=== PATIENT | female | born 1940 | race Caucasian/White ===

== ENCOUNTER → 2022-01-15 10:17 | Outpatient (CLI) | payer OTHER, SELFPAY ==
[2022-01-15 12:00] LABS: COVID19 -Nasal RAPID Negative (Negative)
== END ==
PROVIDERS: PCP Nurse Practitioner; Visit Provider Family Medicine Sleep Medicine
DX: Z20.822 Contact with and (suspected) exposure to COVID-19 (principal)
CPT/HCPCS: 87635; C9803

== ENCOUNTER 2022-01-16 09:51 | Day surgery (SDC) | payer OTHER, SELFPAY ==
[2022-01-15 14:56] VITALS: BMI 41.7
[2022-01-16] VITALS (20 sets, daily range): BP systolic 109–161; BP diastolic 52–88; PULSE 60–104; RESP 10–20; TEMP 35.9–36.8; O2SAT 93–96; BMI 41.7
--- NOTE | 2022-01-16 07:12 | DI.RAD.S_ITS ---
PROCEDURE: XR KNEE LT 1TO2V INDICATIONS: TOTAL KNEE ARTHROPLASTY TECHNIQUE: 2 view(s) of the knee acquired. COMPARISON: None. FINDINGS: Bones: Patient is status post knee joint arthroplasty. Hardware components are in expected positions. Visualized bony structures are intact. Soft tissues: Overlying postoperative changes are noted. IMPRESSION: Postsurgical changes detailed above. Dictated by: Toni Bella M.D. on 01/16/2022 at 15:24 Approved by: Toni Bella M.D. on 01/16/2022 at 15:25
[2022-01-16] MEDS: CELECOXIB 200 MG CAPSULE PO (10:12)
[2022-01-16] MEDS: ACETAMINOPHEN 325 MG TABLET 975 MG PO (10:12)
[2022-01-16] MEDS: VANCOMYCIN 1,000 MG/200 ML PIGGYBACK 200 MG IV (10:12)
[2022-01-16] MEDS: LACTATED RINGERS 1,000 ML 42 ML IV ×2 (10:39→12:52)
--- NOTE | 2022-01-16 11:17 | PM.PREOP ---
Pre-operative Note COVID-19 COVID-19 status: Negative Interval Note History & Physical reviewed/Exam performed by Physician: Yes Changes to H&P: No
--- NOTE | 2022-01-16 11:18 | PM.OP.1 ---
Operative Date/Time/Diagnoses Date of procedure: 01/16/22 Time of procedure: 11:18 Pre-op diagnosis: left knee OA Post-op diagnosis: same Procedure & Clinicians Procedure: Left total knee arthroplasty Same procedure as scheduled: Yes Indications: The patient has had progressively worsening left knee pain with radiographic changes consistent with arthritis. Non-operative management has failed and the patient has requested total knee replacement. The risks, benefits and alternatives to surgery were discussed with the patient prior to proceeding. Risks discussed included, but were not limited to, failure to relieve pain, stiffness, infection, nerve damage, deep venous thrombosis, pulmonary embolism, stroke, coma, heart attack, permanent paralysis and , as well as the potential need for eventual revision of the prosthetic. Surgeon: Tammie Arnett [employer] Manager: Pebbles Tobar Anesthesia Type: General and Spinal Operative Notes Findings: Severe left knee osteoarthritis, adequate stability, good range of motion Closure Type: primary Specimen(s): none sent Prosthetic devices, grafts, tissues, transplants, or devices: [employer] BCs to size 4 femur, size 4 tibia, +9 poly, 35 x 7.5 mm patella Applied: drain(s) Estimated Blood Loss (mL): 250 Blood products transfused: none Tourniquet time (min): 95 Procedure in detail: The patient was seen in the pre-operative area, where the patient identified the left knee as the operative site and this was marked with my initials. The patient received pre-operative antibiotics, and was taken to the operating room and placed on the operative table in the supine position. After satisfactory anesthesia, a radio time buyer out was performed. The left leg was encircled with a tourniquet about the proximal thigh, and the leg was prepared from the toes to the tourniquet with ChloroPrep in the usual fashion and draped through sterile drapes. The leg was elevated and exsanguinated with Eschmark bandage and the tourniquet inflated to [250] mmHg pressure. The knee was approached through an approximately 18 cm incision centered over the patella and carried into the knee through a medial parapatellar arthrotomy. A portion of the medial and lateral meniscus was resected. Soft tissue was carefully mobilized around the patella the patella was measured with a caliper. Bone was resected from the patella and the patellar height was reconstituted with up an appropriate sized patellar component. A cover was then placed on the patella. A small amount of additional medial and lateral meniscus was resected. She had a tight knee and severe osteoarthritis with a markedly abnormal patella. Resected multiple osteophytes around the patella and meticulously mobilized the the patellar tendon and quad to allow adequate access to the knee. She did have some patella baja. The distal femur was cut at 5?. A [+2] cut was used. It looked like an appropriate distal femoral cut and the cut was made without difficulty. An extramedullary guide was used for the tibial cut. 10 mm was resected off the least affected side.The tibia was prepared. The rotation was assessed. The patient was placed in extension residual medial and lateral meniscus as well as any residual bone was carefully resected. [No] additional tibia was resected. Hemostasis was achieved especially posteriorly. Additional local was injected into the posterior capsule. The extension gap was assessed and additional releases for gap balancing were performed as necessary. It was checked with the gap waste management engineer. The femoral component trial was placed and the notch was finished. The rotation was assessed and the appropriate size femoral guide was placed on the distal femur and finishing cuts were made. There was no evidence of notching. The anterior, posterior and chamfer cuts were then made. The posterior osteophytes and soft tissues were then removed. The posterior capsule was injected with part of a mixture of 60 ml 0.25% Marcaine mixed with 20 ml Exparel for post operative pain control. The remainder of this mixture was injected into the capsule and subcutaneous tissues during cement curing. The tibial and femoral components were then placed and the knee placed through a range of motion. Range of motion was [0-130], with good stability throughout the range. The trials were then removed, and the tibia was finished. The bone was prepared with pulsatile lavage, and dried with a sponge. Cement was applied and the final prosthetics placed. Excess cement was removed during and after cement curing. A brief Betadine soak was performed. After confirming there was no extruded cement posteriorly, the final tibial insert was placed. The knee was copiously irrigated and the tourniquet deflated. Hemostasis was obtained with the Bovie cautery. A drain was placed and brought out superolaterally. The capsule was closed with interrupted nonabsorbable suture. The subcutaneous layer was closed with barbed sutures, and the skin with a running 3-0 V-Lock suture and skin melissa. An anjel dressing was applied and the patient was taken to recovery having tolerated the procedure well. Complications: none Post-operative Condition: stable Disposition: Acute Care Plan for aftercare: The patient will be maintained on a standard total knee replacement protocol with weight bearing as tolerated. The patient will receive aspirin and sequential compression devices for DVT prophylaxis. The patient will be discharged home when safe for the home environment.
[2022-01-16] MEDS: CEFAZOLIN 2 GM/20 ML SYRINGE IV ×2 (11:35→19:00)
[2022-01-16] MEDS: TRANEXAMIC ACID 1,000 MG VIAL 2000 MG INJ ×2 (11:40→13:30)
--- NOTE | 2022-01-16 12:07 | SUR.OPER ---
Supine on padded OR bed. Pillow under head, arms secured on padded armboards <90 degree abduction. Safety belt across torso. Non-operative leg secured with tape over blanket over lower leg. Operative leg secured in DeMayo positioner and in control of the surgeon. Foam padded brace at thigh of operative leg.
[2022-01-16] MEDS: BUPIVACAINE LIPOSOME 266 MG/20 ML VIAL INJ (12:34)
[2022-01-16] MEDS: BUPIVACAINE 0.25% (PF) 60 ML, EPINEPHrine 0.3 MG INJ (12:59)
[2022-01-16] MEDS: SODIUM CHLORIDE IRRIG SOLUTION 250 ML, POVIDONE-IODINE SPONGE STICKS 1 APPLIC IRR (13:06)
--- NOTE | 2022-01-16 15:38 | SUR.PHASEI ---
Late entry: (1501)EKG completed by Respiratory therapy at 1501; viewed by Dr Bethea, anesthesiologist; no new changes. Cardiac panel labs ordered and sent to lab for analysis.
--- NOTE | 2022-01-16 15:39 | SUR.PHASEI ---
Patient still c/o chest heaviness but vss; no SOB; resting with eyes closed. VSS. Drinking water when prompted. Awaiting Cardiac Panel results.
[2022-01-16 15:40] LABS: Creatine Kinase 64 U/L (30-135)
[2022-01-16 15:52] LABS: Troponin I < 0.012 ng/mL (0.01-0.034)
--- NOTE | 2022-01-16 16:07 | SUR.PHASEI ---
Cardiac lab resultsback, called in to the OR to Dr. Bethea. He OK'd the patient transfer to acute care. Patient is sitting up, drinking water, talking, denies pain/nausea. Has had not chest pain, nausea, diaphoresis or other cardiac symptoms throughout pacu stay. Only complaint has continued to be the chest 'heaviness'. She currently states that it is 'mild' and 'a lot better.' Report called to acute care nurse. VSS. Pedal pulses continue to be present with doppler.
[2022-01-16] MEDS: LACTATED RINGERS 1,000 ML 100 ML IV (18:00)
--- NOTE | 2022-01-16 19:48 | PC.NURSE ---
Pt arrived from PACU this afternoon slightly groggy, A &Ox3 on 2 LNC. She reports returning sensation to b lower extremities, denies pain to L knee. She has anjel, aquacel, cj wrap and hemovac with minimal out put. She tolerates dinner well w/o n/v. She is encouraged to cough and deep breathe initially sleeping and will encourage IS use. UPon shift change she was requesting to use the bed amato. LR at 100 ml/hr. She denies any further chest discomfort this afternoon/marlin.
[2022-01-16] MEDS: DOCUSATE 100 MG CAPSULE PO (20:27)
[2022-01-16] MEDS: ASPIRIN EC 81 MG TABLET PO (20:27)
[2022-01-16] MEDS: ACETAMINOPHEN 325 MG TABLET 650 MG PO (20:27)
--- NOTE | 2022-01-16 21:55 | PC.NURSE ---
Patient is alert and oriented. Breath sounds CTA with sat of 93% on oxygen at 4L/min. Tried on RA but drops to 88% when asleep so back on oxygen now at 2L/min per NC. HRR. Denies nausea. BT hypoactive and patient denies passing flatus as yet. Is able to turn herself in bed. Up to BSC with walker and 1 assist. Denies pain. Hemovac pulled apart and unable to reconnect so discontinued. ISAC dressing to left knee is intact and functioning; cj wrap to left knee. Wearing bilateral calf SCD's. Chronic neuropathy bilateral feet unchanged and no new numbness/tingling. Able to move left leg well but still with some weakness. Fall risk score is high and bed alarm is activated.
[2022-01-17] MEDS: IBUPROFEN 400 MG TABLET PO ×3 (00:50→09:21)
[2022-01-17 01:14] VITALS: BP 122/60; PULSE 70; RESP 19; TEMP 36.4; O2SAT 94
[2022-01-17] MEDS: CEFAZOLIN 2 GM/20 ML SYRINGE IV (04:14)
[2022-01-17 04:56] LABS: Hematocrit 36.7 % (36-46); Hemoglobin 12.3 g/dL (12.0-16.0)
[2022-01-17 05:10] VITALS: BP 102/54; PULSE 74; RESP 18; TEMP 36.4; O2SAT 93
[2022-01-17] MEDS: LACTATED RINGERS 1,000 ML 100 ML IV (05:41)
[2022-01-17 08:00] VITALS: BP 115/52; PULSE 70; RESP 18; TEMP 35.9; O2SAT 94
--- NOTE | 2022-01-17 08:39 | P.DS_ITS ---
History of Present Illness History of Present Illness Date Patient Seen: 01/17/22 Time Patient Seen: 08:40 Chief complaint: LT TKA 5/3 *OPB* Narrative: Operative Date/Time/Diagnoses Date of procedure: 01/16/22 Time of procedure: 11:18 Pre-op diagnosis: left knee OA Post-op diagnosis: same Procedure & Clinicians Procedure: Left total knee arthroplasty Same procedure as scheduled: Yes Indications: The patient has had progressively worsening left knee pain with radiographic changes consistent with arthritis. Non-operative management has failed and the patient has requested total knee replacement. The risks, benefits and a lternatives to surgery were discussed with the patient prior to proceeding. Risks discussed included, but were not limited to, failure to relieve pain, stiffness, infection, nerve damage, deep venous thrombosis, pulmonary embolism, stroke, coma, heart attack, permanent paralysis and , as well as the potential need for eventual revision of the prosthetic. Surgeon: Tammie Arnett Electronics Supervisor: Pebbles Tobar Anesthesia Type: General and Spinal Operative Notes Findings: Severe left knee osteoarthritis, adequate stability, good range of motion Closure Type: primary Specimen(s): none sent Prosthetic devices, grafts, tissues, transplants, or devices: [employer] BCs to size 4 femur, size 4 tibia, +9 poly, 35 x 7.5 mm patella Applied: drain(s) Estimated Blood Loss (mL): 250 Blood products transfused: none Tourniquet time (min): 95 Discharge Providers Provider Discharge Date: 01/17/22 Primary care physician: HELENA Oliva Consults: 01/16/22 07:12 Consult to Anesthesiology Routine Comment: Consulting Provider: Anesthesiologist Reason for consultation: Regional block for post operative pain control 01/16/22 17:09 Consult to Discharge Planning Routine Comment: Consult to Physical Therapy Evaluate & Treat Comment: Physician Instructions: postop TKA protocol Consult to Respiratory Therapy Evaluate & Treat Comment: Physician Instructions: Evaluate and treat Discharge provider: Pebbles Tobar PA-C Summary Hospital Course Discharge Diagnosis: 1) s/p LEFT total knee arthroplasty 2) Morbid obesity Hospital Course: Ms Gloria's hospital course was remarkable for the need for supplemental oxygen to keep her O2 saturation above 90%. She was on 4 liters by NC after surgery, tapered down to 2 liters on POD# 1, and was saturating 90% or greater on room air by the time of discharge. She was eating and voiding without difficulty. She was evaluated by PT. Her pain was well-controlled on oral medication. Exam Vital Signs (past 8 hours): - 01/17/22 01:14 01/17/22 05:10 Temperature 97.5 F L 97.6 F Pulse Rate 70 74 Respiratory Rate 19 18 Blood Pressure 122/60 102/54 L Pulse Oximetry 94 93 Oxygen Delivery Method Nasal Cannula Oxygen Flow Rate 2 Narrative Exam Narrative: 5/5 strength in hip flexors, quadriceps, hamstrings, DF, PF, EHL bilaterally. Sensation to light touch intact throughout BLE. Calves soft, compressible, nontender and without palpable cords or masses. ISAC dressing operating, CDI. Objective Labs Result Diagrams: 01/17/22 04:37 Labs: Laboratory Results - last 24 hr 01/16/22 01/17/22 15:20 04:37 Hgb 12.3 Hct 36.7 Total Creatine Kinase 64 CK-MB (CK-2) TNP CK-MB (CK-2) Rel Index TNP Troponin I < 0.012 [facility] Medical History (Updated 01/16/22 @ 16:41 by Monse Crespo RN) COVID-19 virus infection (~08/2021) History of dislocation of shoulder Surgical History (Updated 01/16/22 @ 16:41 by Monse Crespo RN) History of arthroplasty of right knee (2011) History of bilateral breast reduction surgery Social History household members: family Smoking Status: Never smoker alcohol intake: never Discharge Assessment & Plan Assessment and Plan Assessment: 1) s/p LEFT total knee arthroplasty 2) Morbid obesity Plan of Treatment: Discharge home, multimodal pain control (pt denies need for prescriptions), outpt PT, ASA 81 mg BID for VTE prophylaxis. Discharge Plan Discharge Plan Patient Disposition: Home Provider Discharge Comment: Pt states no need for discharge medications. Discharge orders & Medications Discharge Orders: Discharge (Order); Ordered 01/17/22 Ordered By: Pebbles Tobar Prescriptions: New acetaminophen 325 mg Tablet 650 mg PO TID Qty: 1 0RF aspirin 81 mg Tablet,Delayed Release (Dr/Ec) 81 mg PO BID Qty: 1 0RF ibuprofen 400 mg Tablet 400 mg PO Q4HR Qty: 1 0RF oxycodone 5 mg Tablet 5 mg PO Q4H PRN (Reason: pain, severe) Qty: 1 0RF Follow up/Referrals: Lisandra Seo ARNP [Primary Care Provider] - Tammie Arnett MD [Physician] - As previously scheduled (Follow up with Dr Arnett on 01/26/2022 @ 2:00 pm at [facility] office in [place]) Diet/Activity/Treatments Diet: Diet as Tolerated Activity: Walk frequently! Cold/Heat Therapy: Ice to knee as needed for pain. Skin/Wound/Dressing Care Report to your healthcare provider any signs of infection, such as:: chills, fever, night sweats, unusual drainage and unusual redness Dressing: May remove ANUP wrap and smaller dressing over drain exit site and shower on January 19. Leave ISAC dressing (long white dressing) in place until follow up visit in office. When the battery expires, you may disconnect the battery pack and throw it away. No bathing or otherwise soaking incision. Call the office if dressing becomes saturated inside. Visit Report/Discharge Packet Instructions: DI for Knee Replacement Stand Alone Forms: Surgery Discharge Discharge Data Primary Care Provider: Lisandra Seo Attending Provider: Tammie Arnett
[2022-01-17] MEDS: DOCUSATE 100 MG CAPSULE PO (09:20)
[2022-01-17] MEDS: ACETAMINOPHEN 325 MG TABLET 650 MG PO (09:20)
[2022-01-17] MEDS: ASPIRIN EC 81 MG TABLET PO (09:21)
[2022-01-17] MEDS: SODIUM CHLORIDE 0.9% FLUSH 10 ML IV (09:21)
[2022-01-17 09:34] VITALS: O2SAT 92
--- NOTE | 2022-01-17 10:20 | PT.IIE ---
Current Diagnoses Unilateral primary osteoarthritis, left knee (01/16/22) Surgery Performed Operation Date: 01/16/22 11:30 Actual Procedures p Total Knee Arthroplasty(Left) - Tammie Arnett MD Medical History (Last Updated 01/16/22 @ 16:41 by Monse Crespo RN) COVID-19 virus infection (~08/2021) History of dislocation of shoulder Physical Therapy Inpatient Evaluation/Re-Eval M1 PT/OT-IP Prior Functional Status Start: 01/17/22 12:38 Freq: NEEDED Status: Discharge Protocol: Document 01/17/22 10:20 AB (Rec: 01/17/22 12:51 AB [id number]) Medical Review Prior Functional Status Medical History Reviewed Yes Communication able to make needs known Mobility and Gait pt stated that she is modified independent with all mobilities and ambulation without AD indoors but tends to furniture cruise; uses 4WW for outdoor mobility Social History Household Members children Living Arrangements Apartment/Condo Number of Floors (Floors) One Floor Number of Stairs To Enter/Railing? 1 steps to enter Home Environment High Toilet,Walk in Shower Home Equipment Front Wheel Walker,Four Wheel Walker,Shower Seat with Backrest,Hand Held Shower,Grab Bars In Shower Additional Social History Comment will have her daughter assist her at home M2 PT-IP Current Condition Start: 01/17/22 12:38 Freq: NEEDED Status: Discharge Protocol: Document 01/17/22 10:20 AB (Rec: 01/17/22 12:51 AB [email or web address]) Physical Therapy Current Condition Current Condition Evaluation Date 01/17/22 Treatment Diagnosis s/p L TKA; difficulty in walking Onset Date 01/16/22 M3 PT-IP Subjective Start: 01/17/22 12:38 Freq: NEEDED Status: Discharge Protocol: Document 01/17/22 10:20 AB (Rec: 01/17/22 12:51 AB [id number]) Subjective Physical Therapy Visit Type Type Initial Evaluation Visit Start Time 10:20 Visit Stop Time 11:15 Total Visit Minutes 55 Number of CABLE BRAIDER Visits 0 Physical Therapy Visit Comments Patient Comments agreeable to do PT Therapy Pain Assessment Pain When Pain Assessed During Mobility Pain Present Pain Present Pain Reported Location Left Knee Intensity 6 Scale Used Numeric (0 - 10) Pain Management Techniques Apply Cold,Distraction, Elevation,Modification of Treatment,Re-positioning, Timing of Activity with Medications M4 PT-IP Mobility and Gait Start: 01/17/22 12:38 Freq: NEEDED Status: Discharge Protocol: Document 01/17/22 10:20 AB (Rec: 01/17/22 12:51 AB [id number]) PT-Bed Mobility Assessment Supine to Sit Supine to Sit Standby Assistance PT-Transfer Assessment Sit to and From Stand Sit to and from Stand Contact Guard Assistance,1 Person Assistance,Use of Upper Extremities Equipment Transfer Assistive Device Gait Belt,Front Wheeled Walker Orthotic/Prosthetic Devices or Brace: No Transfers Transfer Destination Chair,Toilet Transfer Technique ambulated Transfer Ability Level of Assist Standby Assistance,Contact Guard Assistance,1 Person Assistance,Use of Upper Extremities Comments Mobility Comments daughter in room with pt. BP in supine: 113/58. completed supine to sit SBA. able to sit on EOB without c/o dizziness/ lightheadedness. (+) SOB. O2 sat checked: 93%. BP checked in sittin/78. pt completed sit to stand CGA and ambulated to the chair using FWW CGA. pt sat the chair. caregiver training conducted. educated daughter regarding use of safety belt and how to assist pt. daughter was able to put safety belt on pt. assisted pt with sit to stand and ambulated pt using FWW towards the set ~ 30 ft. stair climbing training conducted. educated pt and daughter on stair climbing techniques. pt initially completed stair CGA with PT cueing but completed again without cues. pt ambulated back to her room using FWW SBA to CGA. requested to use the toilet and ambulated to the toilet using FWW SBA to CGA. daughter was able to assist pt safely. pt ambulated from the toilet to the sink using FWW SBA to CGA. pt was able to maintain standing SBA while completing handwashing. ambulated back to chair using FWW SBA. positioned pt on chair. ice pack provided. call light and table placed within reach. continues to have SOB. O2 sat: 93-95% at RA Gait Assessment Gait Gait Assistance Required: Standby Assistance,Contact Guard Assist Distance (Feet) 40 Able to Maintain Weight Bearing Status Yes During Gait Assistive Devices Assistive Device Gait Belt,Front Wheeled Walker Orthotic/Prosthetic Devices or Brace: No Gait Deviations General Gait Pattern Decreased Stride Length, Decreased Feet Clearance Factors Limiting Gait Function Factors Limiting Gait Function Decreased Activity Tolerance, Limited Range of Motion,Pain, Poor Balance,Poor Safety Awareness,Respiratory Distress Stair Climbing Assessment Evaluation Level of Assist On Stairs Contact Guard Assistance Devices Stair Climbing Assistive Devices Front Wheel Walker Technique/Endurance Stair Climbing Direction Ascend and Descend Stair Climbing Technique Step to Step Number of Steps Climbed 1 Query Text: Stair Climbing Set # Repetitions (reps) 2 PT-Balance Assessment Sitting Balance and Reactions Static Sitting Balance Ability Good Dynamic Sitting Balance Ability Good Standing Balance and Reactions Static Standing Balance Ability Fair Dynamic Standing Balance Ability Fair Device Used FWW M5 PT-IP Objective Assessments Start: 01/17/22 12:38 Freq: NEEDED Status: Discharge Protocol: Document 01/17/22 10:20 AB (Rec: 01/17/22 12:51 AB [email or web address]) Orientation Orientation/Cognition Level of Alertness Alert Orientation Name,Place,Situation Language Function Ability No Deficits Noted Safety Awareness Decreased Safety Awareness Memory Description No Deficits Noted Gross Range of Motion Lower Extremity ROM Impairments L knee flexion: ~ 40 deg L knee extension: ~ 15 deg less to 0 Strength Lower Extremity Strength Assessment Left Impaired Hip 4-/5 Knee 3+/5 Coordination Assessment Gross Coordination Gross Coordination WNL Sensation Assessment Sensation Gross Sensation WNL Muscle Tone Muscle Tone WNL Yes M6 PT-IP Treatment Start: 01/17/22 12:38 Freq: NEEDED Status: Discharge Protocol: Document 01/17/22 10:20 AB (Rec: 01/17/22 12:51 AB [email or web address]) Physical Therapy Treatment Exercises Exercises Heel Slides Education Education Provided Precautions,Weight Bearing Status,Post-Op Packet,Safety M7 PT-IP Assessment and Plan Start: 01/17/22 12:38 Freq: NEEDED Status: Discharge Protocol: Document 01/17/22 10:20 AB (Rec: 01/17/22 12:51 AB [id number]) PT Summary Assessment and Plan Potential Rehabilitation Potential Good Status of Condition at Evaluation Stable Summary Impairments Pain,ROM,Strength,Balance, Coordination,Sensation,Tone, Cognition,Bed Mobility, Transfers,Gait,Activity Tolerance Assessment Summary pt requiring SBA to CGA with mobility. caregiver training conducted and daughter is able to assist pt safely. pt may go home when medically stable. Goals Bed Mobility Goal Independent Transfer Goal Independent,Front Wheeled Walker Gait Goal Independent,Front Wheel Walker Gait Distance 200 Other Goals ambulation using 4WW mod I 300 ft up/down 1 steps using FWW/4WW mod I Days to Meet Goals 3 Frequency of Treatment Frequency Of Treatment Twice a Day Treatment Plan Physical Therapy Treatment Plan Bed Mobility Training,Transfer Training,Gait Training, Therapeutic Exercise,Balance Retraining,Post Op Education, Discharge Planning,Hot or Cold Pack,Neuromuscular Re-ed, Coordination Retraining,Manual Therapy Weight Bearing Status Weight Bearing Status Weight Bear as Tolerated Allowed Weight Bearing Amount (enter % LLE WBAT or #) (%) Recommendations To Nursing Amount of Assist Needed 1 Person Assist Discharge Recommendations PT Discharge Recommendations Home with Assistance, Outpatient PT Transportation Needs at Discharge Private Vehicle
--- NOTE | 2022-01-17 12:35 | PC.NURSE ---
Pt discharged at 1235, escorted off floor in wheelchair, accompanied by daughter and hospital staff. IVs removed, discharge teaching provided including follow up appointments, wound care and new medications. Questions and concerns addressed. Pt left with all belongings.
== END 2022-01-17 12:38 | disposition home or self-care (01) ==
LOC: OR 09:54 → AC 09:55
PROVIDERS: Anesthesiology; PCP Nurse Practitioner; Referring Provider Orthopaedic Surgery; Visit Provider Orthopaedic Surgery
PROC: 0SRD0JZ Replacement of Left Knee Joint with Synthetic Substitute, Open Approach (ICD-10-PCS; CPT 27447; principal; 2022-01-16 11:30)
DX: M17.12 Unilateral primary osteoarthritis, left knee (principal); E66.9 Obesity, unspecified; Z68.41 Body mass index [BMI] 40.0-44.9, adult
CPT/HCPCS: 27447; 36415; 73560; 82550; 84484; 85014; 85018; 93005; 93010; 97161; 97530; C1776; C1713; C9290; J0171; J0690; J1100; J2250; J2274; J2405; J2704; J3010